=== PATIENT | female | born 1945 | race Caucasian/White ===

== ENCOUNTER 2017-04-20 15:39 | Emergency (ER) ==
[2017-04-20 16:00] VITALS: BP 119/73; TEMP 97.5
--- NOTE | 2017-04-20 16:06 | ED.PDOC ---
General ED Provider: Dr. ARVIND HEBERT JR Chief Complaint: Back Pain Stated Complaint: pulling weeds, stepped into hole, fell backwards onto buttocks hard ground. No head injury noLOC per EMS spine board, c-collar; pain left wrist radial side caught herself withleft hand Pain across lower back[End] 97.5 75 20 95% 119/73 8/10 Time Seen by Physician: 16:03 Mode of Arrival: Stretcher Information Source: Patient Exam Limitations: No limitations Primary Care Provider: STEPHANIE DECKER Nursing and Triage Documentation Reviewed and Agree: No Review of Systems - Review Of Systems Constitutional: Reports: No symptoms Eyes: Reports: No symptoms Ears, Nose, Mouth, Throat: Reports: No symptoms Respiratory: Reports: No symptoms Cardiac: Reports: No symptoms GI: Reports: No symptoms : Reports: No symptoms Musculoskeletal: Reports: Back pain, Joint pain Skin: Reports: No symptoms Neurological: Reports: No symptoms Endocrine: Reports: No symptoms Hematologic/Lymphatic: Reports: No symptoms All Other Systems: Other Past Medical History - Past Medical History Previously Healthy: Yes Endocrine: Reports: None Cardiovascular: Reports: None Respiratory: Reports: None Hematological: Reports: None Gastrointestinal: Reports: None Genitourinary: Reports: None Neuro/Psych: Reports: None Musculoskeletal: Reports: Arthritis Cancer: Reports: Other (rt shoulder melanoma) Last Menstrual Period: hysterectomy - Surgical History General Surgical History: Reports: Hysterectomy, Other (rt shoulder melanoma) - Family History Family History: Reports: Unknown - Social History Smoking Status: Never smoker Hx Substance Use: No Alcohol Screening: None Physical Exam - Physical Exam Appearance: Ill-appearing Pain Distress: Moderate Neck: Supple Respiratory: Airway patent Cardiovascular: RRR, Pulses normal, No rub, No murmur GI/: Soft, Nontender, No masses, Bowel sounds normal, No Organomegaly Musculoskeletal: Normal strength, ROM intact, No edema, No calf tenderness ( TENDER LUMBAR AREA NONFOCAL TENDER LEFT WRIST RADIAL SIDE) Skin: Warm, Dry, Normal color Neurological: Sensation intact, Motor intact, Reflexes intact, Cranial nerves intact, Alert, Oriented Psychiatric: Affect appropriate, Mood appropriate Physician Notification - Case Discussed Physician Notified: DR DECKER [id number] Time of Notification: 17:04 (DRUZE CALLING DR DECKER) Physician Notified: DR ALMAZAN Time of Notification: 17:11 (ACCEPTS ROOM 340 DRUZE [phone]) Critical Care Note - Critical Care Note Total Time (mins): 5 Course - Course Orders, Labs, Meds: Orders Category Date Time Status Morphine Sulfate [Morphine 4 mg/ml Syringe] MEDS 04/20/17 16:19 Discontinued 4 mg IM ONCE STA Ondansetron HCl/Pf [Zofran 4 mg/2 ml] MEDS 04/20/17 16:19 Discontinued 4 mg IM ONCE STA CT LUMBAR SPINE W/O CONTRAST Stat RADS 04/20/17 16:14 Completed WRIST, LEFT 3 VIEWS Stat RADS 04/20/17 16:06 Completed Medications Discontinued Medications Generic Name Dose Route Start Last Admin Trade Name Freq PRN Reason Stop Dose Admin Morphine Sulfate 4 mg 04/20/17 16:19 04/20/17 16:29 Morphine 4 Mg/Ml Syringe IM 04/20/17 16:20 4 mg ONCE STA Administration Ondansetron HCl 4 mg 04/20/17 16:19 04/20/17 16:29 Zofran 4 Mg/2 Ml IM 04/20/17 16:20 4 mg ONCE STA Administration Vital Signs: Temp Pulse Resp BP Pulse Ox 04/20/17 15:40 97.5 F L 75 20 119/73 95 Departure - Departure Time of Disposition: 17:12 Disposition: TSF SHORT-TRM HOSP Discharge Problem: Compression fx, lumbar spine Qualifiers: Encounter type: initial encounter Lumbar vertebra fracture level: L1 Fracture type: closed Qualifier Code: (S32.010A) Wedge compression fracture of first lumbar vertebra, initial encounter for closed fracture Instructions: Vertebral Compression Fracture (ED) Condition: Stable Pt referred to PMD for follow-up: Yes (DISC WITH DR BRIANNE ALMAZAN ACCEPTS) Allergies/Adverse Reactions: Allergies TAPE Adverse Reaction (Uncoded 08/21/14 14:02) Home Medications: Ambulatory Orders 1 [No Reported Medications] 08/21/14
[2017-04-20] MEDS: ZOFRAN 4 MG/2 ML IM STA (16:29)
[2017-04-20] MEDS: MORPHINE 4 MG/ML SYRINGE IM STA (16:29)
--- NOTE | 2017-04-20 16:33 | DI ---
Exam: Left wrist three-view History: Left distal radius and ulnar tenderness Findings / impression: The radial ulnar and radiocarpal joints appear normal. The distal radius is normal. No significant bony or articular abnormality of the intercarpal or carpal metacarpal joint s. Negative exam.
--- NOTE | 2017-04-20 16:45 | CT ---
Exam: CT lumbar spine without contrast History: Fall with back pain Technique: [address] lumbar spine with multiplanar reformations FINDINGS: Lumbar spine shows normal alignment. There is a superior endplate concavity deformity of L1 with acute features. Minor height loss about 2-3 mm. No retropulsion or fold in the posterior aspect of the vertebral body. The anterior superior corner fracture is well. Mild multilevel endpl ate spondylosis and facet arthropathy changes. No immediate paravertebral soft tissue abnormalities . Impression: 1. Superior endplate concavity deformity and anterior-superior corner fracture of L1. No involveme nt of the posterior aspect of the vertebral body.
[2017-04-20] MEDS: MORPHINE 4 MG/ML SYRINGE IVP STA (17:45)
== END 2017-04-20 18:00 | disposition short-term general hospital (02) ==
LOC: ED 15:39
DX: S32.010A Wedge compression fracture of first lumbar vertebra, initial encounter for closed fracture (principal); M25.532 Pain in left wrist; W01.0XXA Fall on same level from slipping, tripping and stumbling without subsequent striking against object, initial encounter
CPT/HCPCS: 96372; 96374; 99285

== ENCOUNTER 2018-06-19 10:17 | Outpatient (CLI) | payer OTHER ==
--- NOTE | 2018-06-19 11:23 | MAMMO ---
EXAM: Digital screening mammogram with tomosynthesis HISTORY: Screening COMPARISON: 09/12/2016 FINDINGS: Digital MLO and CC views of the right and left breast were performed. Tomosynthesis was p erformed. Computer aided detection utilized. There are scattered fibroglandular densities. There is no evidence for mass, asymmetry, distortion, or suspicious calcifications in either breast. IMPRESSION: 1. No evidence of malignancy in the right or left breast. 2. Annual screening mammogram is recommended in one year. BIRADS category 1, negative examination
== END 2018-06-19 10:18 | disposition home or self-care (01) ==
LOC: RAD 10:17
PROVIDERS: ATTEND Family Medicine
DX: Z12.31 Encounter for screening mammogram for malignant neoplasm of breast (principal)
CPT/HCPCS: 77067

== ENCOUNTER 2020-10-11 16:46 | Observation (INO) ==
[2020-10-11] MEDS ORDERED: SODIUM CHLORIDE 1,000 ML IV STA (17:08)
--- NOTE | 2020-10-11 17:16 | ED.PDOC ---
General ED Provider: Dr. ODILIA DE LEON MD Stated Complaint: left facial droop x 1 day Time Seen by Physician: 16:49 Mode of Arrival: Wheelchair Information Source: Patient Primary Care Provider: STEPHANIE DECKER Nursing and Triage Documentation Reviewed and Agree: Yes Does patient meet sepsis criteria?: No System Inflammatory Response Syndrome: Not Applicable Sepsis Protocol: For patient's 13 years and over: Temp is 96.8 and below OR 101 and greater Pulse >90 BPM Resp >20/minute Acutely Altered Mental Status Are patient's symptoms suggestive of a new infection, such as: -Pneumonia -Skin, Soft Tissue -Endocarditis -UTI -Bone, Joint Infection -Implantable Device -Acute Abdominal Infection -Wound Infection -Meningitis -Blood Stream Catheter Infection -Unknown Neurological Deficit Complaint/Exam Symptom Onset Unknown: No (facial droop x 1 day) Symptom Onset Date: 10/11/20 Symptom Onset Time: 05:00 Onset: Gradual Symptoms Are: Still present Timing: Constant Episodes Lasting: Hours Initial Severity: Moderate Current Severity: Moderate Location: Reports Facial Character: Reports Paralysis (left facial droop and difficulty closing left eye) NIH Scale Score (see protocol): 1 IV t-PA Prescribed: No Reasons for not prescribing IV t-PA: Medical contraindication Review of Systems Review Of Systems Constitutional: Reports No symptoms Eyes: Reports No symptoms Ears, Nose, Mouth, Throat: Reports No symptoms Respiratory: Reports No symptoms Cardiac: Reports No symptoms GI: Reports No symptoms : Reports No symptoms Musculoskeletal: Reports No symptoms Skin: Reports No symptoms Neurological: Reports Other (left facial droop) Endocrine: Reports No symptoms Hematologic/Lymphatic: Reports No symptoms All Other Systems: Reviewed and Negative [facility] Medical History (Updated 10/11/20 @ 20:33 by PIPPA MCKEON RN) Melanoma Family History (Updated 10/11/20 @ 20:33 by PIPPA MCKEON RN) Mother Asthma Pancreatic cancer FATHER Emphysema of lung Social History (Updated 10/11/20 @ 20:33 by PIPPA MCKEON RN) Smoking and tobacco status: Never smoker Alcohol intake: never Surgical History (Updated 10/11/20 @ 20:33 by PIPPA MCKEON RN) History of appendectomy History of cholecystectomy History of hysterectomy Female Reproductive History Menstrual Hx Hysterectomy: Yes Physical Exam Physical Exam Appearance: Reports Well-appearing and Other (left facial droop with difficulty closing left eye. ) Ill-appearing: None Pain Distress: None Eyes: Reports MOSES, EOMI and Conjunctiva clear ENT: Reports Ears normal and Nose normal Neck: Supple Respiratory: Reports Airway patent, Breath sounds clear and Breath sounds equal Cardiovascular: Reports RRR, Pulses normal, No rub and No murmur GI/: Reports Soft, Nontender, No masses, Bowel sounds normal and No O rganomegaly Musculoskeletal: Reports Normal strength, ROM intact, No edema and No calf tenderness Skin: Reports Warm, Dry and Normal color Neurological: Reports Sensation intact, Motor intact, Alert, Oriented and Focal Deficit (left facial droop with difficulty closing left eye.) Psychiatric: Reports Affect appropriate and Mood appropriate Interpretation Radiology Interpretation Radiology Interpretation By: Radiologist Exam Interpreted: CXR and CT Scan Re-Evaluation Re-Evaluation Time of Re-Evaluation: 17:45 Status: Unchanged Vital Signs Stable: Yes Pain Level: 0 Appearance: NAD Lungs: Clear Skin: Warm and Dry Neuro: Other (left facial droop) CV: RRR Critical Care Note Critical Care Note Total Critical Care Time (mins): 30 Course Course Hematology/Chemistry: 10/13/20 04:55 10/13/20 04:55 Orders, Labs, Meds: Lab Review 10/11/20 10/11/20 10/11/20 17:18 17:18 18:06 WBC 6.52 RBC 4.03 L Hgb 12.0 Hct 36.4 L MCV 90.3 MCH 29.8 MCHC 33.0 RDW Coeff of Bryn 13.6 Plt Count 253 Immature Gran % (Auto) 0.3 Neut % (Auto) 60.3 Lymph % (Auto) 29.1 [place] % (Auto) 5.4 Eos % (Auto) 4.0 Baso % (Auto) 0.9 Neut # (Auto) 3.9 Lymph # (Auto) 1.9 [place] # (Auto) 0.4 Eos # (Auto) 0.3 Baso # (Auto) 0.1 Immature Gran # (Auto) 0.0 Sodium 135.9 Potassium 3.60 Chloride 101.6 Carbon Dioxide 26.7 Anion Gap 11.20 BUN 12.5 Creatinine 0.80 Estimated GFR (MDRD) 70.00 BUN/Creatinine Ratio 15.62 Glucose 101.9 Calcium 8.97 Total Bilirubin 0.52 AST 26.9 ALT 11.6 Alkaline Phosphatase 64.6 Troponin I < 0.012 Total Protein 7.14 Albumin 4.20 Globulin 2.94 Albumin/Globulin Ratio 1.42 Urine Color Yellow Urine Clarity Clear Urine pH 5.5 Ur Specific Kimberly >=1.030 Urine Protein Negative Urine Glucose (UA) Negative Urine Ketones Negative Urine Blood Trace-intact H Urine Nitrite Negative Urine Bilirubin Negative Urine Urobilinogen 0.2 Ur Leukocyte Esterase Trace H Urine Microscopic RBC 5-10 Urine Microscopic WBC 5-10 Ur Squamous Epith Cells 2-5 Urine Bacteria 1+ Orders Category Date Time Status OBSERVATION [PLACE PATIENT OBSERVATION] .TO MEDSURG ADMISSION 10/11/20 18:57 Active (MONITORED BED) EKG-(ED ONLY) Stat CARDIO 10/11/20 17:03 Completed ACTIVITY TID CARE 10/11/20 19:00 Active INTAKE & OUTPUT Q8HR CARE 10/11/20 18:58 Active NEUROLOGICAL CHECKS Q8HR CARE 10/11/20 19:00 Active TELEMETRY MONITORING TELE CARE 10/11/20 18:57 Active VITAL SIGNS Q8HR CARE 10/11/20 18:58 Completed REGULAR DIET DIETARY 10/11/20 Breakfast Ordered ED IV/MEDIPORT/POWERPORT .ONCE EMERGENCY 10/11/20 17:08 Active ED IV/MEDIPORT/POWERPORT .ONCE EMERGENCY 10/11/20 18:58 Active CBC W/ AUTO DIFF DAILY@0600 LAB 10/12/20 04:54 Completed CBC W/ AUTO DIFF DAILY@0600 LAB 10/13/20 04:55 Completed CBC W/ AUTO DIFF Stat LAB 10/11/20 17:18 Completed COMPREHENSIVE METABOLIC PANEL DAILY@0600 LAB 10/12/20 04:54 Completed COMPREHENSIVE METABOLIC PANEL DAILY@0600 LAB 10/13/20 04:55 Completed COMPREHENSIVE METABOLIC PANEL Stat LAB 10/11/20 17:18 Completed TROPONIN I Stat LAB 10/11/20 17:18 Completed URINALYSIS WITH MICROSCOPIC Stat LAB 10/11/20 18:06 Completed 0.9 % Sodium Chloride [Saline Flush] MEDS 10/11/20 17:08 Discontinued 1 syr IVF PRN PRN Ceftriaxone/D5w 1 gm Premix [Rocephin 1 gm/50 ml D5w] MEDS 10/11/20 18:38 Discontinued 1 gm in 50 ml IV ONCE Dexamethasone Sod Phosphate [Decadron] MEDS 10/11/20 21:00 Active 4 mg IVP Q8HR Sodium Chloride 0.9% [Sodium Chloride] 1,000 ml MEDS 10/11/20 17:08 Discontinued IV 100 mls/hr RESUSCITATION STATUS Routine OTHERS 10/11/20 18:57 Completed CHEST, 1V AP ONLY Stat RADS 10/11/20 17:[address] HEAD W/O CONTRAST Stat RADS 10/11/20 17:03 Completed MRI BRAIN W/O CONTRAST Routine RADS 10/12/20 06:00 Completed U/S DOPPLER CAROTID Stat RADS 10/12/20 06:00 Completed Medications Generic Name Dose Route Start Last Admin Trade Name Freq PRN Reason Stop Dose Admin Dexamethasone Sodium Phosphate 4 mg 10/11/20 21:00 10/13/20 05:04 Dexamethasone Sod Phos 4 Mg/Ml Inj IVP 4 mg Q8HR DELIA Administration Sodium Chloride 1 syr 10/12/20 21:00 10/13/20 05:04 0.9% Sodium Chloride 10 Ml Disp.Syrin IVF 1 syr Q8HR DELIA Administration Discontinued Medications Generic Name Dose Route Start Last Admin Trade Name Freq PRN Reason Stop Dose Admin Acetaminophen 650 mg 10/12/20 15:35 10/12/20 15:46 Acetaminophen 325 Mg Tablet PO 10/12/20 15:36 650 mg ONCE STA Administration Acetaminophen 1,000 mg 10/12/20 20:08 10/12/20 20:58 Acetaminophen 500 Mg Tablet PO 10/12/20 20:09 1,000 mg ONCE STA Administration Sodium Chloride 1,000 mls @ 100 mls/hr 10/11/20 17:08 10/11/20 20:44 Sodium Chloride IV 10/12/20 03:07 100 mls/hr .Q10H STA Administration CEFTRIAXONE/D5W 1 GM PREMIX 1 gm in 50 mls @ 75 mls/hr 10/11/20 18:38 10/11/20 19:00 Rocephin 1 Gm/50 Ml D5w IV 10/11/20 19:17 75 mls/hr ONCE STA Administration Sodium Chloride 1 syr 10/11/20 17:08 10/12/20 12:33 0.9% Sodium Chloride 10 Ml Disp.Syrin IVF 1 syr PRN PRN Administration To flush IV Vital Signs: Temp Pulse Resp BP Pulse Ox 10/11/20 16:47 96.1 F L 67 16 131/54 L 97 Discharge Plan Discharge Patient Disposition: PLACED OBSERVATION ED Provider: BRIANNE-ER,STEPHANIE Condition: Good Physician Progress Note: []Pt was endorsed to Dr Decker.
[2020-10-11 17:21] LABS: BASOPHILS # (AUTO) 0.1 K/uL (0-0.2); BASOPHILS % (AUTO) 0.9 % (0.0-3.0); EOSINOPHILS # (AUTO) 0.3 K/ul (0.0-0.7); HEMATOCRIT 36.4 % (37.0-47.0); IMMATURE GRANULOCYTE % (AUTO) 0.3 % (0.0-5.0); LYMPHOCYTES # (AUTO) 1.9 K/uL (0.60-3.4); LYMPHOCYTES % (AUTO) 29.1 (10.0-50.0); MEAN CORPUSCULAR HEMOGLOBIN 29.8 pg (27.0-31.0); MEAN CORPUSCULAR VOLUME 90.3 fl (81.0-99.0); MONOCYTES # (AUTO) 0.4 K/uL (0.4-2.0); MONOCYTES % (AUTO) 5.4 (0-10); NEUTROPHILS # (AUTO) 3.9 K/ul (2.0-6.9); NEUTROPHILS % (AUTO) 60.3 % (42.2-75.2); PLATELET COUNT 253 10^3/uL (140-440); RDW COEFFICIENT OF VARIATION 13.6 % (11.6-14.8); RED BLOOD COUNT 4.03 10^6/ul (4.20-5.40); WHITE BLOOD COUNT 6.52 K/ul (4.6-10.2)
[2020-10-11 17:33] LABS: ALANINE AMINOTRANSFERASE 11.6 U/L (0-35); ALKALINE PHOSPHATASE 64.6 U/L (53-141); ASPARTATE AMINO TRANSFERASE 26.9 U/L (14-36); BILIRUBIN,TOTAL 0.52 mg/dL (0.2-1.3); BLOOD UREA NITROGEN 12.5 mg/dL (7-17); CALCIUM 8.97 mg/dL (8.4-10.2); CARBON DIOXIDE 26.7 mmol/L (22-30.0); CHLORIDE 101.6 mmol/L (98-107); GLUCOSE 101.9 mg/dL (74-106); SODIUM 135.9 mmol/L (134.5-145); TOTAL PROTEIN 7.14 g/dL (6.3-8.2)
--- NOTE | 2020-10-11 17:40 | CT ---
EXAM: CT head without contrast HISTORY: Left-sided facial droop COMPARISON: None TECHNIQUE: Serial axial images of the brain were obtained from the skull base to the vertex without IV contrast. FINDINGS: The ventricles, cisterns and sulci demonstrate mild generalized volume loss. The pacheco-whi te matter junction is maintained. There is scattered low attenuation in the periventricular white ma tter.No midline shift or mass is identified. There is no abnormal intra or extra-axial fluid collect ion. The paranasal sinuses and mastoid air cells are clear. The osseous calvarium is intact. IMPRESSION: 1. No acute intracranial abnormality. 2. Generalized volume loss with scattered microangiopathy. If further evaluation is clinically indicated, MRI may be obtained. All CT scans are performed using dose optimization techniques as appropriate to the performed exam an d include at least one of the following: Automated exposure control, adjustment of the mA and/or kV according t o size, and the use of iterative reconstruction technique.
[2020-10-11 17:45] LABS: TROPONIN I < 0.012 ng/ml (0.0000-0.120)
--- NOTE | 2020-10-11 17:47 | DI ---
EXAM: Chest, single view COMPARISON: Chest radiographs 12/17/2010. HISTORY: Facial droop. FINDINGS: The lungs are hyperinflated related to a chronic obstructive pulmonary disease. Small daniel cified granulomas which are unchanged. Suspected linear scarring versus subsegmental atelectasis in the right lung base. No pleural effusion or pneumothorax. IMPRESSION: 1. Chronic obstructive pulmonary disease. 2. Minimal linear scarring/subsegmental atelectasis in the right lung base. Old granulomatous disea se.
[2020-10-11 18:14] LABS: BILIRUBIN,URINE Negative (NEGATIVE); CLARITY,URINE Clear (CLEAR); COLOR,URINE Yellow (YELLOW); GLUCOSE, URINE (UA) Negative (NEGATIVE); KETONES,URINE Negative (NEGATIVE); LEUKOCYTE ESTERASE ,URINE Trace (NEGATIVE); NITRITE,URINE Negative (NEGATIVE); PH,URINE 5.5 (5-9); PROTEIN,URINE Negative (NEGATIVE); URINE, BLOOD Trace-intact (NEGATIVE); UROBILINOGEN,URINE 0.2 (0.2)
[2020-10-11 18:19] LABS: BACTERIA,URINE 1+ (NOT PRESENT)
[2020-10-11] MEDS ORDERED: ROCEPHIN 1 GM/50 ML D5W 1 GM/50 ML BAG IV STA (18:38)
[2020-10-11 20:27] VITALS: BMI 23.1
[2020-10-11] MEDS: DECADRON IVP SCH (20:43)
[2020-10-12 05:08] LABS: BASOPHILS % (AUTO) 0.3 % (0.0-3.0); EOSINOPHILS % (AUTO) 0.2 % (0.0-7.0); HEMATOCRIT 35.8 % (37.0-47.0); HEMOGLOBIN 12.1 g/dl (12.0-16.0); IMMATURE GRANULOCYTE % (AUTO) 0.3 % (0.0-5.0); LYMPHOCYTES # (AUTO) 0.8 K/uL (0.60-3.4); LYMPHOCYTES % (AUTO) 12.9 (10.0-50.0); MEAN CORPUSCULAR HEMOGLOBIN 30.2 pg (27.0-31.0); MEAN CORPUSCULAR HGB CONC 33.8 (31.8-35.4); MEAN CORPUSCULAR VOLUME 89.3 fl (81.0-99.0); MONOCYTES # (AUTO) 0.1 K/uL (0.4-2.0); NEUTROPHILS # (AUTO) 5.3 K/ul (2.0-6.9); NEUTROPHILS % (AUTO) 85.3 % (42.2-75.2); PLATELET COUNT 258 10^3/uL (140-440); RDW COEFFICIENT OF VARIATION 13.4 % (11.6-14.8); RED BLOOD COUNT 4.01 10^6/ul (4.20-5.40); WHITE BLOOD COUNT 6.21 K/ul (4.6-10.2)
[2020-10-12 05:23] LABS: ALANINE AMINOTRANSFERASE 11.6 U/L (0-35); ASPARTATE AMINO TRANSFERASE 23.1 U/L (14-36); BILIRUBIN,TOTAL 0.48 mg/dL (0.2-1.3); BLOOD UREA NITROGEN 10.7 mg/dL (7-17); CALCIUM 9.05 mg/dL (8.4-10.2); CARBON DIOXIDE 24.8 mmol/L (22-30.0); CHLORIDE 106.5 mmol/L (98-107); CREATININE 0.7 mg/dL (0.60-1.30); POTASSIUM 4.25 mmol/L (3.5-5.1); SODIUM 138.2 mmol/L (134.5-145); TOTAL PROTEIN 6.95 g/dL (6.3-8.2)
[2020-10-12] MEDS: DECADRON IVP SCH ×3 (05:24→20:58)
--- NOTE | 2020-10-12 11:15 | MRI ---
EXAM: MRI brain without contrast. Date: 10/12/2020 COMPARISON: CT brain 10/11/2020 HISTORY: Doan's palsy. Left-sided facial drooping. Melanoma. TECHNIQUE: Routine MR images of the brain were obtained without IV Gadolinium FINDINGS: No intracranial mass, mass effect, hemorrhage, or abnormal extra-axial fluid collection. The ventricles and subarachnoid spaces are not enlarged. Normal flow voids of the major intracranial arteries seen. No acute infarct on diffusion weighted imaging. There are periventricular and subco rtical white matter T2 hyperintensities that are nonspecific and most likely represent small vessel d isease. No pituitary, pineal, or cerebellopontine angle lesion seen. The craniocervical junction ap pears normal. Visualized orbital structures are normal. Paranasal sinuses are clear. No fluid in th e middle ear cavities or mastoid air cells. IMPRESSION: 1. No acute intracranial abnormality. 2. Periventricular and subcortical white matter T2 hyperintensities that are nonspecific and most li floyd represent small vessel disease.Differential diagnosis includes Lyme disease.
--- NOTE | 2020-10-12 11:36 | US ---
EXAM: ULTRASOUND CAROTID DUPLEX, BILATERAL HISTORY: TIA FINDINGS: Gomez-scale ultrasound, color Doppler and spectral analysis was performed. Velocities are in meters per second. By gomez scale and color Doppler imaging, there were regions of heterogeneous plaque formation identif ied within the carotid bulbs and internal carotid arteries. These regions of plaque appeared to noni in less than 50% vessel diameter. RIGHT: External carotid artery peak systolic velocity: 0.86 Common carotid artery peak systolic velocity/end diastolic velocity: 1.0/0.19 Internal carotid artery peak systolic velocity: 0.62 ICA/CCA peak systolic velocity ratio: 0.6 ICA end diastolic velocity: 0.14 LEFT: External carotid artery peak systolic velocity: 0.55/0.0 Common carotid artery peak systolic velocity/end diastolic velocity: 0.84/0.13 Internal carotid artery peak systolic velocity: 0.55 ICA/CCA peak systolic velocity ratio: 0.7 ICA end diastolic velocity: 0.16 The right and left vertebral arteries were antegrade. IMPRESSION: 1. By gomez scale and color Doppler imaging, there were regions of heterogeneous plaque formation elias ntified within the carotid bulbs and internal carotid arteries. These regions of plaque appeared to remain less than 50% vessel diameter. 2. Internal carotid artery peak systolic velocities and ICA/CCA peak systolic velocity ratios indica te no hemodynamically significant stenosis bilaterally. 3. Both vertebral arteries were antegrade.
[2020-10-12] MEDS ORDERED: TYLENOL PO STA ×2 (15:35→20:08)
[2020-10-12] MEDS ORDERED: TYLENOL ONE ×2 (15:44→20:56)
[2020-10-13] MEDS: DECADRON IVP SCH ×2 (05:04→13:41)
[2020-10-13 05:48] LABS: BASOPHILS % (AUTO) 0.2 % (0.0-3.0); HEMATOCRIT 37.1 % (37.0-47.0); HEMOGLOBIN 12.5 g/dl (12.0-16.0); IMMATURE GRANULOCYTE # (AUTO) 0.1 (0.0-1.0); IMMATURE GRANULOCYTE % (AUTO) 0.8 % (0.0-5.0); LYMPHOCYTES # (AUTO) 1.1 K/uL (0.60-3.4); LYMPHOCYTES % (AUTO) 9.5 (10.0-50.0); MEAN CORPUSCULAR HGB CONC 33.7 (31.8-35.4); MEAN CORPUSCULAR VOLUME 89.2 fl (81.0-99.0); MONOCYTES # (AUTO) 0.2 K/uL (0.4-2.0); MONOCYTES % (AUTO) 1.8 (0-10); NEUTROPHILS # (AUTO) 10.3 K/ul (2.0-6.9); NEUTROPHILS % (AUTO) 87.7 % (42.2-75.2); PLATELET COUNT 307 10^3/uL (140-440); RDW COEFFICIENT OF VARIATION 13.6 % (11.6-14.8); RED BLOOD COUNT 4.16 10^6/ul (4.20-5.40); WHITE BLOOD COUNT 11.77 K/ul (4.6-10.2)
[2020-10-13 05:58] LABS: ALANINE AMINOTRANSFERASE 12.5 U/L (0-35); ALBUMIN 4.22 g/dL (3.5-5.0); ALKALINE PHOSPHATASE 52.6 U/L (53-141); ASPARTATE AMINO TRANSFERASE 21.9 U/L (14-36); BILIRUBIN,TOTAL 0.56 mg/dL (0.2-1.3); BLOOD UREA NITROGEN 16.7 mg/dL (7-17); CALCIUM 9.72 mg/dL (8.4-10.2); CARBON DIOXIDE 24.9 mmol/L (22-30.0); CHLORIDE 104.6 mmol/L (98-107); CREATININE 0.86 mg/dL (0.60-1.30); POTASSIUM 3.53 mmol/L (3.5-5.1); SODIUM 140.4 mmol/L (134.5-145); TOTAL PROTEIN 7.28 g/dL (6.3-8.2)
[2020-10-13 15:13] VITALS: BP 103/53; TEMP 98.1
--- NOTE | 2020-11-22 13:26 | SSS ---
PRINCIPAL DIAGNOSIS: 1. Doan's Palsy DISCUSSION: 75 year old lady who was seen in the emergency department with 2-3 day history of facial droop and difficulty in closing the left eye. 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 Flores who is the ER provider was concerned that this maybe policy services representative of a stroke therefore wanted to admit her. I was agreeable to the place her under observation. She was admitted to observation under my name. PAST MEDICAL HISTORY: MEDICATIONS: None ALLERGIES: None PAST MEDICAL HISTORY: Remote history of melanoma PAST SURGICAL HISTORY: History of appendectomy Cholecystectomy Hysterectomy SOCIAL HISTORY: No history of alcohol or tobacco use noted. FAMILY HISTORY: Asthma Pancreatitis Cancer in mother COPD in father REVIEW OF SYSTEMS: No headaches, visual changes, tinnitus, chest pain, shortness of breath, hemoptysis, abdominal pain, blood in the stool, urinary symptoms or seizures. PHYSICAL EXAMINATION: VITAL SIGNS: Temperature 97.6, pulse 57, respirations 16 and blood pressure 131/54, oxygen saturation 94%. GENERAL: Exam reveals a 75 year old lady who does have an obvious left facial droop. She has difficult in closing left eye. HEENT: Pupils are round. Equal. NECK: Supple. CHEST: Clear. CARDIOVASCULAR: Regular rate and rhythm. ABDOMEN: Soft, nontender. EXTREMITIES: Distal extremities without cyanosis or edema. Other neuro exam is unremarkable. She is able to move all extremities without difficulty. CLINICAL COURSE: She placed into my services in observation. Neuro status remained stable. MRI of the brain did not reveal any evidence of of stroke. At this point the patient was discharged with a diagnosis of Doan's Palsy. She was given tapering dose of steroids. She will followup with me in a few days in the office. PHANI
== END 2020-10-13 17:45 | disposition home or self-care (01) ==
LOC: ED 16:46 → MEDSURG A 16:46
PROVIDERS: ADMIT Family Medicine; ATTEND Family Medicine
DX: R29.810 Facial weakness